=== PATIENT | male | born 1960 | race Caucasian/White ===

== ENCOUNTER 2017-08-15 02:29 | Emergency (ER) | payer OTHER ==
[~2017-08-15] VITALS: Ht 180.3 cm; Wt 65.8 kg
[~2017-08-15 02:29] MED LIST: ASPIRIN81 M4 PO; CALTRATE 600 +1 EACH PO; CARISOPRODOL350 MG PO; ENDOCET 10-3251 EACH PO; GEMFIBROZIL600 M1 PO; LISINOPRIL20 M1 PO; MELOXICAM15 MG PO; METOPROLOL TART25 M1 PO; OXYCODONE HCL15 M1 PO; PANTOPRAZOLE SO40 M1 PO; PLAVIX75 M1 PO; PRINIVIL 5MG5 MG PO; RANITIDINE150 MG PO; SIMVASTATIN40 MG PO
--- NOTE | 2017-08-15 02:54 | ED GI/GU/ABDOMINAL COMPLAINT ---
History of Present Illness General Chief Complaint: Abdominal Pain/Flank Pain Stated Complaint: " PAIN IN LT SIDE X'S 3 HRS" NOT VERY COOPERTIVE Source: patient, family, old records Exam Limitations: no limitations Vital Signs & Intake/Output Vital Signs & Intake/Output Vital Signs Date Time Temp Pulse Resp B/P B/P Pulse O2 O2 Flow FiO2 Mean Ox Delivery Rate 08/15 0547 98.4 86 20 167/102 97 Room Air 08/15 0311 99 Room Air 08/15 0252 20 100 Room Air 08/15 0241 96.0 60 20 164/100 Allergies Coded Allergies: NO KNOWN ALLERGIES (05/05/11) Reconcile Medications Aspirin (Aspirin*) 81 MG TAB.CHEW 1 TAB PO DAILY HEART HEALTH (Reported) Calcium Carbonate/Vitamin D3 (Caltrate 600 + D Tablet) 600 MG-800 TABLET 1 TAB PO DAILY SUPPLEMENT (Reported) Clopidogrel Bisulfate (Plavix) 75 MG TABLET 1 TAB PO DAILY TIA Gemfibrozil 600 MG TABLET 1 TAB PO BID CHOLESTEROL (Reported) Lisinopril 20 MG TABLET 1 TAB PO DAILY HEART (Reported) Metoprolol Tartrate 25 MG TABLET 1 TAB PO BID HEART (Reported) Oxycodone HCl 15 MG TABLET 1 TAB PO TIDPRN PRN PAIN (Reported) Oxycodone HCl/Acetaminophen (Endocet 10-325 MG Tablet) 10 MG-325 MG TABLET 1 TAB PO TIDPRN PRN PAIN (Reported) Pantoprazole Sodium 40 MG TABLET.DR 1 TAB PO DAILY GI (Reported) Triage Note: PT FROM HOME WITH C/O LEFT SIDE ABD PAIN THAT BEGAN 3 HOURS [employer]. PT REPORTS PAIN WOKE HIM UP FROM SLEEP. PT REPORTS THE PAIN FEELS LIKE "I GOT SHOT ON THE SIDE". DENIES N/V/D WITH PAIN. Triage Nurses Notes Reviewed? yes HPI: Patient was awoken from sleep, sharp stabbing pain in his left lower quadrant. The pain is constant for the past 3 hours. Pain is 10 out of 10. There are no aggravating or mitigating factors. There is no radiation. Patient is felt like anything like this before. Patient has not had a colonoscopy. Past History Travel History Traveled to [place] past 21 day No Medical History Any Pertinent Medical History? 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 No Review of Systems Review of Systems Constitutional: Reports: no symptoms. EENTM: Reports: no symptoms. Respiratory: Reports: no symptoms. Cardiovascular: Reports: no symptoms. GI: Reports: see HPI, abdominal pain. Genitourinary: Reports: no symptoms. Musculoskeletal: Reports: no symptoms. Skin: Reports: no symptoms. Neurological/Psychological: Reports: no symptoms. Hematologic/Endocrine: Reports: no symptoms. Immunologic/Allergic: Reports: no symptoms. All Other Systems: Reviewed and Negative Physical Exam Physical Exam General Appearance: well developed/nourished, alert, awake, moderate distress Head: atraumatic, normal appearance Eyes: Bilateral: PERRL, EOMI. Ears, Nose, Throat, Mouth: hearing grossly normal, moist mucous membrane Neck: normal inspection, supple, full range of motion Respiratory: normal breath sounds, chest non-tender, no respiratory distress, lungs clear Cardiovascular: regular rate/rhythm, normal peripheral pulses Gastrointestinal: normal bowel sounds, soft, tenderness (LLQ) Back: normal inspection, normal range of motion Extremities: normal range of motion Neurologic/Psych: no motor/sensory deficits, awake, alert, oriented x 3, normal mood/affect Skin: intact, normal color, warm/dry Core Measures ACS in differential dx? No Sepsis Present: No Sepsis Focused Exam Completed? No Progress Differential Diagnosis: colon cancer, diverticulitis, ischemic bowel, inflamm bowel dis, ureterolithiasis, UTI/pyelo Plan of Care: Orders Procedure Date/time Status URINALYSIS 08/15 253 Complete LIPASE 08/15 253 Complete COMPREHENSIVE METABOLIC PANEL 08/15 253 Complete CBC WITHOUT DIFFERENTIAL 08/15 253 Complete AMYLASE 08/15 253 Complete Laboratory Tests 08/15/17 0508: Urine Color YEL, Urine Clarity CLEAR, Urine pH 6.5, Ur Specific [place] 1.015, Urine Protein NEG, Urine Ketones NEG, Urine Nitrite NEG, Urine Bilirubin NEG, Urine Urobilinogen 0.2, Ur Leukocyte Esterase NEG, Ur Microscopic SEDIMENT EXAMINED, Urine RBC 10-15 H, Urine WBC RARE, Urine Mucus FEW, Urine Hemoglobin MOD H, Urine Glucose NEG 08/15/17 0339: Anion Gap 12, Estimated GFR > 60, BUN/Creatinine Ratio 21.4, Glucose 125 H, Calcium 7.9 L, Total Bilirubin 0.3, AST 15 L, ALT 22, Alkaline Phosphatase 64, Total Protein 5.6 L, Albumin 3.4 L, Globulin 2.2, Albumin/Globulin Ratio 1.5, Amylase 45, Lipase 62 08/15/17 0304: CBC w Diff MAN DIFF ORDERED, RBC 4.29 L, MCV 96.9 H, MCH 32.4 H, RDW 15.9 H, MPV 7.2 L, Gran % 56.7, Lymphocytes % 35.5, Monocytes % 4.9, Eosinophils % 2.3, Basophils % 0.6, Absolute Granulocytes 9.6 H, Segmented Neutrophils 63, Absolute Lymphocytes 6.0 H, Lymphocytes 29, Monocytes 5, Absolute Monocytes 0.8 H, Eosinophils 3, Absolute Eosinophils 0.4, Absolute Basophils 0.1, Platelet Estimate ADEQUATE, Normocytic RBCs VERIFIED, Normochromic RBCs VERIFIED, PUBS MCHC 33.5 Diagnostic Imaging: Viewed by Me: CT Scan. Discussed w/RAD: CT Scan. Radiology Impression: PATIENT: JANINE GRACIA PRESENT AGE: 57 PATIENT ACCOUNT NO: [id number] : 60 LOCATION: [facility] ORDERING PHYSICIAN: Shawn Dennison MD SERVICE DATE: 08/15/17 EXAM TYPE: CAT - CT ABD & PELVIS W IV CONTRAST EXAMINATION: CT ABDOMEN AND PELVIS WITH CONTRAST CLINICAL INFORMATION: Left lower quadrant pain COMPARISON: 2011 TECHNIQUE: Multidetector volumetric imaging was performed of the abdomen and pelvis following IV administration of 95 mL of Optiray 320 intravenous contrast. Sagittal and coronal reformatted images were obtained on the technologist's workstation. DLP: 266.65 mGy-cm FINDINGS: LUNG BASES: The visualized lung bases are unremarkable. LIVER, GALLBLADDER, AND BILIARY TREE: The liver is normal in size, shape, and attenuation. No focal hepatic lesion or biliary ductal dilatation is present. The gallbladder is unremarkable with no evidence of radiopaque gallstones, gallbladder wall thickening, or obvious pericholecystic inflammatory changes. PANCREAS: Unremarkable. SPLEEN: Unremarkable. ADRENAL GLANDS: Unremarkable. KIDNEYS AND URETERS: There is mild asymmetric left perinephric stranding adjacent to the lower pole. Bilateral nephrograms appear symmetric. No hydronephrosis bilaterally. There are several scattered bilateral renal calculi measuring up to 4 mm. BLADDER: Partially distended without wall thickening. There is a 2 mm calculus in the posterior urinary bladder near the right ureterovesicular junction. GASTROINTESTINAL TRACT : There is colonic diverticulosis without convincing evidence for diverticulitis. A moderate volume of stool is present throughout the colon. No abnormal bowel wall thickening is seen. No evidence of bowel obstruction. No free air is seen. ABDOMINAL WALL: No significant hernia is appreciated. LYMPH NODES: Normal. VASCULAR: There is atherosclerotic calcification along the aorta. PELVIC VISCERA: Unremarkable. OSSEOUS STRUCTURES: Degenerative changes are noted in the spine. IMPRESSION: 1. Mild asymmetric left perinephric stranding. Appearance can be seen with pyelonephritis in the proper clinical setting. No hydronephrosis. 2. Calcification measuring 2 mm in the urinary bladder near the right ureterovesicular junction; this may represent a recently passed calculus. 3. Several scattered bilateral renal calculi. 4. Colonic diverticulosis without evidence of diverticulitis. Moderate volume of stool throughout the colon. DICTATED BY: Alber Reza MD DATE/TIME DICTATED:08/15/17501 SALES PORTER:ALFRED DATE/TIME TRANSCRIBED:08/15/17501 CONFIDENTIAL, DO NOT COPY WITHOUT APPROPRIATE AUTHORIZATION. <Electronically signed in Other Vendor System> SIGNED BY: Alber Reza MD 08/15/17 0514 Initial ED EKG: none Comments: Patient is pain-free after IV medications. On reexamination there is no tenderness, no guarding, no rebound. Departure Departure Disposition: HOME OR SELF CARE Condition: Stable Clinical Impression Primary Impression: Kidney stone Referrals: Ana ALLEN,Kit Churchill APRN (PCP/Family) Additional Instructions: TAKE PERCOCET IF YOU GET ANY MORE PAIN RETURN IF SYMPTOMS WORSEN OR FOR ANY CONCERNS Departure Forms: Customer Survey General Discharge Information Prescriptions: Current Visit Scripts Oxycodone HCl/Acetaminophen (Percocet 5-325 MG Tablet) 1-2 TAB PO Q6P PRN PAIN #10 TAB
[2017-08-15 03:21] LABS: ABSOLUTE BASOPHIL COUNT 0.1 /CUMM (0.0-0.2); ABSOLUTE EOSINOPHIL COUNT 0.4 /CUMM (0.0-0.7); ABSOLUTE GRANULOCYTE CT 9.6 /CUMM (1.4-6.5); ABSOLUTE MONOCYTE COUNT 0.8 /CUMM (0.10-0.60); BASOPHIL % 0.6 % (0.0-2.0); EOSINOPHIL % 2.3 % (0-5); GRANULOCYTE % 56.7 % (42.2-75.2); HEMATOCRIT 41.6 % (42-52); MEAN CORPUSCULAR HGB 32.4 PG (27.0-31.0); MEAN CORPUSCULAR HGB CONC 33.5 G/DL (33.0-37.0); MEAN CORPUSCULAR VOLUME 96.9 FL (80.0-94.0); MEAN PLATELET VOLUME 7.2 FL (7.4-10.4); PLATELET COUNT 368 /CUMM (130-400); RBC DISTRIBUTION WIDTH 15.9 % (11.5-14.5); RED BLOOD CELL CT 4.29 /CUMM (4.70-6.10)
--- NOTE | 2017-08-15 05:14 | CT SCAN REPORT ---
EXAMINATION: CT ABDOMEN AND PELVIS WITH CONTRAST CLINICAL INFORMATION: Left lower quadrant pain COMPARISON: 04/07/2012 TECHNIQUE: Multidetector volumetric imaging was performed of the abdomen and pelvis following IV administration of 95 mL of Optiray 320 intravenous contrast. Sagittal and coronal reformatted images were obtained on the technologist's workstation. DLP: 266.65 mGy-cm FINDINGS: LUNG BASES: The visualized lung bases are unremarkable. LIVER, GALLBLADDER, AND BILIARY TREE: The liver is normal in size, shape, and attenuation. No focal hepatic lesion or biliary ductal dilatation is present. The gallbladder is unremarkable with no evidence of radiopaque gallstones, gallbladder wall thickening, or obvious pericholecystic inflammatory changes. PANCREAS: Unremarkable. SPLEEN: Unremarkable. ADRENAL GLANDS: Unremarkable. KIDNEYS AND URETERS: There is mild asymmetric left perinephric stranding adjacent to the lower pole. Bilateral nephrograms appear symmetric. No hydronephrosis bilaterally. There are several scattered bilateral renal calculi measuring up to 4 mm. BLADDER: Partially distended without wall thickening. There is a 2 mm calculus in the posterior urinary bladder near the right ureterovesicular junction. GASTROINTESTINAL TRACT: There is colonic diverticulosis without convincing evidence for diverticulitis. A moderate volume of stool is present throughout the colon. No abnormal bowel wall thickening is seen. No evidence of bowel obstruction. No free air is seen. ABDOMINAL WALL: No significant hernia is appreciated. LYMPH NODES: Normal. VASCULAR: There is atherosclerotic calcification along the aorta. PELVIC VISCERA: Unremarkable. OSSEOUS STRUCTURES: Degenerative changes are noted in the spine. IMPRESSION: 1. Mild asymmetric left perinephric stranding. Appearance can be seen with pyelonephritis in the proper clinical setting. No hydronephrosis. 2. Calcification measuring 2 mm in the urinary bladder near the right ureterovesicular junction; this may represent a recently passed calculus. 3. Several scattered bilateral renal calculi. 4. Colonic diverticulosis without evidence of diverticulitis. Moderate volume of stool throughout the colon.
[2017-08-15 05:47] VITALS: BP 167/102
[2017-08-15] MEDS ORDERED: PERCOCET 5-3251 EACH PO (06:04)
[2017-08-15] MEDS ORDERED: VICODIN 5-3001 EACH PO (06:27)
== END 2017-08-15 06:30 ==
LOC: ERH 02:29
PROVIDERS: Emergency Medicine
DX: N20.0 Calculus of kidney (principal)
CPT/HCPCS: 74177; 81001; 96374